=== PATIENT | female | born 1990 | race African-American/Black ===

== ENCOUNTER 2017-02-02 20:30 | Emergency (ER) | payer OTHER ==
[~2017-02-02] VITALS: Ht 167.6 cm; Wt 79.8 kg
[~2017-02-02 20:30] MED LIST: ACET500T68 PO; CEPH-264 PO
[2017-02-02 20:46] VITALS: BP 133/91
--- NOTE | 2017-02-02 20:53 | PHYS DOC ---
Past Medical History Past Medical History: Asthma Past Surgical History: No Surgical History Alcohol Use: None Drug Use: None Adult General Chief Complaint Chief Complaint: LACERATION/AVULSION [facility] HPI Patient is a 27 year old female presents to the emergency department with a history of cutting her left ring finger on a knife. Patient states her immunizations are up to date. Bleeding is currently controlled. Review of Systems Review of Systems Constitutional: Denies fever or chills [] Eyes: Denies change in visual acuity, redness, or eye pain [] HENT: Denies nasal congestion or sore throat [] Respiratory: Denies cough or shortness of breath [] Cardiovascular: No additional information not addressed in HPI [] GI: Denies abdominal pain, nausea, vomiting, bloody stools or diarrhea [] : Denies dysuria or hematuria [] Musculoskeletal: Denies back pain or joint pain [] Integument: Denies rash or skin lesions. C/o left ring finger laceration Neurologic: Denies headache, focal weakness or sensory changes [] Endocrine: Denies polyuria or polydipsia [] Allergies Allergies Allergies Coded Allergies Type Severity Reaction Last Updated Verified No Known Drug Allergies 11/24/13 No Physical Exam Physical Exam Constitutional: Well developed, well nourished, no acute distress, non-toxic appearance. [] HENT: Normocephalic, atraumatic, bilateral external ears normal, oropharynx moist, no oral exudates, nose normal. [] Eyes: PERRLA, EOMI, conjunctiva normal, no discharge. [] Neck: Normal range of motion, no tenderness, supple, no stridor. [] Cardiovascular:Heart rate regular rhythm Lungs & Thorax: no respiratory distress Skin: Warm, dry, no erythema, no rash. Patient with 0.5 cm laceration to the left ring finger. Back: No tenderness Extremities: No tenderness, no cyanosis, no clubbing, ROM intact, no edema. [] Neurologic: Alert and oriented X 3, normal motor function, normal sensory function, no focal deficits noted. [] Psychologic: Affect normal, judgement normal, mood normal. [] Current Patient Data Vital Signs Vital Signs Date Time Temp Pulse Resp B/P (MAP) Pulse Ox O2 Delivery O2 Flow Rate FiO2 02/02/17 20:46 98.4 66 18 98 Room Air 98.4 EKG EKG [] Radiology/Procedures Radiology/Procedures [] Course & Med Decision Making Course & Med Decision Making Pertinent Labs and Imaging studies reviewed. (See chart for details) 2047 when into assess the patient has a ride for a laceration. Patient is currently on the phone and has chosen to take the phone call as opposed to being taking care of in the emergency department at this time. Told patient that I would return after her from call his been completed. 2124 patient had put on her call light stating that she is ready for the nurse practitioner to come and evaluate her. Patient has a 0.5 cm laceration at the left PIP joint. Patient area was cleaned with water and soap with Steri-Strips placed over the area. Patient was provided with discharge instructions such as keeping the area clean and dry. Signs and symptoms of infection was provided such as redness warmth tenderness or any yellow/greenish drainage of a come from the site. Patient was instructed to follow-up with primary care physician immediately. Signs symptoms to return back to emergency provided them provided. [] Dragon Disclaimer Dragon Disclaimer This electronic medical record was generated, in whole or in part, using a voice recognition dictation system. Departure Departure Impression: Primary Impression: Laceration Disposition: 01 HOME, SELF-CARE Condition: STABLE Referrals: NO PCP (PCP) Patient Instructions: Laceration Care, Adult, [id number], Sterile Tape Wound Closure Additional Instructions: Keep the area clean and dry\ Clean the site with soap and water twice a day Watch for signs and symptoms of infection: redness, warmth, tenderness or any yellow/green drainage that may come from the site. If this should occur followup with primary care provider immediately Steri strips should fall off in 7-10 days Followup with your primary care provider as needed Return to emergency department as needed. ALISA LA[place] ROW BOSS Feb 02, 2017 20:53
== END 2017-02-02 21:50 | disposition home or self-care (01) ==
LOC: ER 20:30
DX: S61.215A Laceration without foreign body of left ring finger without damage to nail, initial encounter (principal); J45.909 Unspecified asthma, uncomplicated; W26.0XXA Contact with knife, initial encounter; Y93.89 Activity, other specified; Y92.89 Other specified places as the place of occurrence of the external cause; Y99.8 Other external cause status
CPT/HCPCS: 99282; 99283

== ENCOUNTER 2017-04-14 11:38 | Emergency (ER) | payer OTHER | END 2017-04-14 12:15 | disposition left against medical advice (07) | LOC: ER 11:38 | DX: H53.8 Other visual disturbances (principal); Z53.21 Procedure and treatment not carried out due to patient leaving prior to being seen by health care provider ==

== ENCOUNTER 2021-02-27 21:24 | Emergency (ER) | payer OTHER ==
[~2021-02-27] VITALS: Ht 167.6 cm; Wt 80.5 kg
[2021-02-27 22:30] VITALS: BP 145/99
[2021-02-27] MEDS ORDERED: LIDOCAINE 2%/EPI 1:100,000 20 ML VIAL. INJ ONE (23:00)
[2021-02-27] MEDS ORDERED: HYDROcodone/APAP 10/325 1 TAB TABLET PO ONE (23:00)
--- NOTE | 2021-02-28 00:46 | PHYS DOC ---
Past Medical History Past Medical History: Anemia, Asthma Past Surgical History: No Surgical History Smoking Status: Never Smoker Alcohol Use: None Drug Use: None General Adult EDM: Chief Complaint: SKIN RASH/ABSCESS HPI: HPI: Patient is a 31 year old female presents to the emergency department complaining of an abscess to her right axilla that has been there for the past 5 days, patient states she usually can get them to come to ahead and drain at home. Patient states this one did not and is becoming larger and more painful. Patient denies any recent fever or chills, denies any home medications, denies skin rashes, headaches, visual disturbances, chest pains, abdominal pains, nause a or vomiting. Patient denies any other physical complaints or physical concerns. 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 Patient reports she had a baby on December 09, has not had a menstrual cycle since, is currently breast- feeding. Review of Systems: Review of Systems: 14 body systems of review of systems have been reviewed. See HPI for pertinent positives and negative responses, otherwise all other systems are negative, nonpertinent or noncontributory. Constitutional: Negative except as outlined in HPI above. Skin: Negative except as outlined in HPI above. Eyes: Negative except as outlined in HPI above. HENT: Negative except as outlined in HPI above. Respiratory: Negative except as outlined in HPI above. Cardiovascular: Negative except as outlined in HPI above. GI: Negative except as outlined in HPI above. : Negative except as outlined in HPI above. Musculoskeletal: Negative except as outlined in HPI above. Integument: Negative except as outlined in HPI above. Neurologic: Negative except as outlined in HPI above. Endocrine: Negative except as outlined in HPI above. Lymphatic: Negative except as outlined in HPI above. Psychiatric: Negative except as outlined in HPI above. Heart Score: C/O Chest Pain: No Risk Factors: Risk Factors: DM, Current or recent (<one month) smoker, HTN, HLP, family history of CAD, obesity. Risk Scores: Score 0 - 3: 2.5% MACE over next 6 weeks - Discharge Home Score 4 - 6: 20.3% MACE over next 6 weeks - Admit for Clinical Observation Score 7 - 10: 72.7% MACE over next 6 weeks - Early Invasive Strategies Current Medications: Current Medications Medications (Trade) Dose Ordered Sig/Lito Start Time Stop Time Status Last Admin Dose Admin Acetaminophen/ Hydrocodone Bitart (Lortab 10/325) 1 tab 1X ONCE 02/27/21 23:00 02/27/21 23:01 DC 02/27/21 23:03 1 TAB Lidocaine/ Epinephrine (LIDOCAINE 2%-EPI 1:100,000 multi-dose) 20 ml 1X ONCE 02/27/21 23:00 02/27/21 23:01 DC 02/27/21 23:04 20 ML Allergies: Allergies: Allergies Coded Allergies Type Severity Reaction Last Updated Verified No Known Drug Allergies 11/24/13 No Physical Exam: PE: Constitutional: Well developed, well nourished, no acute distress, non-toxic appearance. 31-year-old female in no apparent distress. HENT: Normocephalic, atraumatic. Eyes: Conjunctiva normal, no discharge. Neck: Normal range of motion, no stridor. Cardiovascular: No cyanosis appreciated, distal cap refill less than 2 seconds. Lungs & Thorax: Patient is in no respiratory distress, no audible adventitious lung sounds appreciated. Abdomen: Nontender, no abnormalities noted. Skin: Warm, dry, no erythema, no rash. See extremity note for focus skin examination. Back: No tenderness, no deformities. Extremities: No tenderness, no cyanosis, no clubbing, ROM intact, no edema. Fluctuant abscess to right axilla, no central punctum appreciated, no drainage appreciated. No other abscesses appreciated. 2 cm in diameter. Neurologic: Alert and oriented X 3, normal motor function, normal sensory function, no focal deficits noted. Psychologic: Affect normal, judgement normal, mood normal. Current Patient Data: Vital Signs: Vital Signs Date Time Temp Pulse Resp B/P (MAP) Pulse Ox O2 Delivery O2 Flow Rate FiO2 02/27/21 23:03 20 98 Room Air 02/27/21 22:30 109 145/99 (114) 02/27/21 21:50 98.6 98.6 EKG: EKG: [] Radiology/Procedures: Radiology/Procedures: [] Course & Med Decision Making: Course & Med Decision Making Pertinent Labs and Imaging studies reviewed. (See chart for details) 31-year-old female, vital signs reviewed, presents emergency department planing of abscess to right axilla for the past 5 days. Physical examination consistent with patient's complaint presentation. Abscess versus hidradenitis suppurativa. Patient does not have a history of hidradenitis suppurativa, has had a history of axilla abscesses, no scars evident in axillas, most likely an abscess. See I&D note. Patient's tetanus status up-to-date prior to arrival to the emergency department, tetanus immunization not indicated for today's visit. Only scant amount of drainage from I&D, will diagnosed with hydronidus suppurativa, started on clindamycin ointment. Discuss with the patient all findings and diagnostic testing as well as the need to follow-up with their primary care provider for further evaluation and treatment or return to the ED if any new or worsening symptoms. Strict return precautions were also discussed at length, the patient voiced understanding and agreement with the discharge planning. The patient was nontoxic in appearance, in no apparent distress, and hemodynamically stable at the time of disposition. Dragon Disclaimer: Dragon Disclaimer: This electronic medical record was generated, in whole or in part, using a voice recognition dictation system. Incision and Drainage Indication: abscess Procedure: The patient was positioned appropriately. Local anesthesia was achieved with 3 cc 2% lidocaine with epinephrine. An incision was then made over the apex of the lesion and scant amount of material was expressed. No drainage cavity appreciated, no loculations present. The patients tetanus status was up-to-date prior to arrival to the emergency department, culture was obtained and sent to lab. The patient tolerated the procedure well. Complications: none. Departure Departure Impression: Primary Impression: Hidradenitis suppurativa of right axilla Disposition: 01 HOME / SELF CARE / HOMELESS Condition: GOOD Referrals: NO PCP (PCP) Patient Instructions: Hidradenitis Suppurativa, Sweat Gland Abscess Additional Instructions: You have been diagnosed today with a hydradenitis suppurativa of the right axilla. Please use antibiotic ointment as directed. It is safe for your baby while breast-feeding, however do not place on nipple area as it may cause diarrhea. Use only as directed on axilla. Please follow-up with your primary care physician for ongoing management of this abscess. Thank you for visiting our Emergency Department. It was a pleasure taking care of you today in the emergency department and we appreciate you trusting us with your care. If any additional problems come up don't hesitate to return to visit us. Please follow up with your primary care provider so they can plan additional care if needed and know about the problem that you had. If symptoms worsen come back to the Emergency Department. Any concerning symptoms that start such as chest pain, shortness of air, weakness or numbness on one side of the body, running high fevers or any other concerning symptoms return to the ER. EMERGENCY DEPARTMENT GENERAL DISCHARGE INSTRUCTIONS Thank you for coming to [facility] Emergency Department (ED) today and trusting us with you care. We trust that you had a positive experience in our Emergency Department. If you wish to speak to the department management, you may call the Director at [phone]. YOUR FOLLOW UP INSTRUCTIONS ARE FOLLOWS: 1. Do you have a private Doctor? If you do not have a private doctor, please ask for a resource list of physicians or clinics that may be able to assist you with follow up care. 2. The Emergency Physicain has interpreted your x-rays. The X-Ray specialist will also review them. If there is a change in the findings, you will be notified in 48 hours when at all possible. 3. A lab test or culture has been done, your results will be reviewed and you will be notified if you need a change in treatment. ADDITIONAL INSTRUCTIONS AND INFORMATION: 1. Your care today has been supervised by a physician who is specially trained in emergency care. Many problems require more than one evaluation for a complete diagnosis and treatment. We recommend that you schedule your follow up appointment as recommended to ensure complete treatment of you illness or injury. If you are unable to obtain follow up care and continue to have a problem, or if your condition worsens, we recommend that you return to the ED. 2. We are not able to safely determine your condition over the phone nor are we able to give sound medical advice over the phone. For these safety reasons, if you call for medical advice we will ask you to come to the ED for further evaluation. 3. If you have any questions regarding these discharge instructions please call the ED at [phone]. SAFETY INFORMATION: In the interest of safety, wellness, and injury prevention; we encourage you to wear your sealbelt, if you smoke; quite smoking, and we encourage family to use a protective helmet for bicycling and other sporting events that present an increased risk for head injury. IF YOUR SYMPTOMS WORSEN OR NEW SYMPTOMS DEVELOP, OR YOU HAVE CONCERNS ABOUT YOUR CONDITION; OR IF YOUR CONDITION WORSENS WHILE YOU ARE WAITING FOR YOUR FOLLOW UP APPOINTMENT; EITHER CONTACT YOUR PRIMARY CARE DOCTOR, THE PHYSICIAN WHOSE NAME AND NUMBER YOU WERE GIVEN, OR RETURN TO THE ED IMMEDIATELY. Scripts Hydrocodone/Acetaminophen (Hydrocodone-Acetamin 5-325 mg) 1 Each Tablet 1 EACH PO Q4-6HRS, #14 TAB Prov: LYLE CHANCE DO 02/28/21 Clindamycin Phosphate (Clindamycin Phosphate) 75 Ml Gel.daily 75 ML TP BID for axilla infection, #1 EACH 1 Refill Prov: RIA DOWELL APRN 02/28/21 RIA DOWELL APRN Feb 28, 2021 00:46
[2021-02-28] MEDS ORDERED: HYDR-2761 PO ×3 (01:12→01:19)
[2021-02-28] MEDS ORDERED: CLIN75GE4 TP (01:12)
[2021-02-28] MEDS ORDERED: HYDR-2759 PO (01:23)
== END 2021-02-28 01:40 | disposition home or self-care (01) ==
LOC: ER 21:24
DX: L73.2 Hidradenitis suppurativa (principal); L02.411 Cutaneous abscess of right axilla; J45.909 Unspecified asthma, uncomplicated
CPT/HCPCS: 10060; 87071; 87075; 99283; J3490